=== PATIENT | female | born 1945 | race Caucasian/White ===

== ENCOUNTER 2022-10-09 17:51 | Emergency (ER) | payer MEDICARE, BC ==
[~2022-10-09] VITALS: Ht 162.6 cm; Wt 57.7 kg
[2022-10-09] MEDS ORDERED: bacitracin 15gm ointment TP ONE (20:50)
[2022-10-09] MEDS ORDERED: cephalexin 250mg capsule PO ONE (23:10)
[2022-10-09] MEDS ORDERED: CEPH-585 PO (23:24)
[2022-10-09 23:51] VITALS: BP 124/80
== END 2022-10-09 23:43 | disposition home or self-care (01) ==
LOC: ER 17:52
DX: S51.012A Laceration without foreign body of left elbow, initial encounter (principal); X58.XXXA Exposure to other specified factors, initial encounter; Y93.89 Activity, other specified; Y92.89 Other specified places as the place of occurrence of the external cause; Y99.8 Other external cause status
CPT/HCPCS: 12001; 73080; 73590; 99284; A6222; A6223; 12011; A6258; A6449